=== PATIENT | female | born 1965 | race Caucasian/White ===

== ENCOUNTER → 2017-05-25 | Outpatient (CLI) | payer OTHER ==
[~2017-05-25] MED LIST: GADOBUTROL 10 ML VIAL IVP ONE
== END ==
LOC: FIMAGING 10:24
PROVIDERS: ATTEND Emergency Medicine
DX: Z15.01 Genetic susceptibility to malignant neoplasm of breast (principal)
CPT/HCPCS: 0159T; A9585; C8908

== ENCOUNTER 2018-01-26 02:50 | Emergency (ER) | payer OTHER ==
[2018-01-26 04:14] LABS: PLATELET COUNT 305 10^3/uL (150-400)
[2018-01-26] MEDS ORDERED: PHENAZOPYRIDINE HCL 200 MG TAB PO ONE (04:34)
--- NOTE | 2018-01-26 05:20 | EDPHY ---
H & P Stated Complaint: unable to urinate Source: Patient Exam Limitations: No limitations - Personal History LMP (Females 10-55): 8-14 Days Ago Current Tetanus Diphtheria and Acellular Pertussis (TDAP): No - Medical/Surgical History Hx Asthma: No Hx Chronic Respiratory Disease: No Hx Diabetes: No Hx Cardiac Disease: No Hx Renal Disease: No Hx Cirrhosis: No Hx Alcoholism: No Hx HIV/AIDS: No Hx Splenectomy or Spleen Trauma: No Other PMH: MS 2006. celiac. thyroiditis - Social History Smoking Status: Never smoked Time Seen by Provider: 01/26/18 03:22 HPI/ROS: HPI The patient presents with urinary retention which has been present since 8:00 p.m. Tonight. She has been unable to void at all since then. She has had a feeling of urinary frequency throughout the day yesterday and today. Since June of this year she has been diagnosed with frequent UTIs that have been resistant antibiotics, thus she has been treated with hyperbaric oxygen therapy with good result. She is being followed by the urologist Dr. Mann. She also reports constipation for the last 1-2 months. Lately she has been requiring an enema every other day for this. She last had an enema tonight with large volume stool output, however she was still unable to void after this. She complains of some paresthesias just below her diaphragm bilaterally as well in her buttocks bilaterally. The patient has a history of relapsing and remitting multiple sclerosis and has had lesions identified in her brain and spine. She has required IV steroids for a flare several years ago. REVIEW OF SYSTEMS 10 systems were reviewed and negative with the exception of the elements mentioned in the history of present illness. PMHx: Relapsing remitting MS currently on prednisone 10 mg, history of frequent UTI since June of this year treated with antibiotics and hyperbaric oxygen therapy. Followed by Dr. Kim for primary care, Dr. Anne for local Neurology, Dr. King is her urologist, and seeing Dr. Bhagat of Neurology at [facility] Hx: Housed PHYSICAL General Appearance: Alert, no distress Eyes: Pupils equal and round no pallor or injection ENT, Mouth: Mucous membranes moist Respiratory: There are no retractions, lungs are clear to auscultation Cardiovascular: Regular rate and rhythm Gastrointestinal: Abdomen is slightly distended in suprapubic region and non- tender, no masses, bowel sounds normal Neurological: Alert and oriented x3, cranial nerves 2-12 intact, strength is full in her upper and lower extremities, there is decreased sensation to light touch in of her upper abdomen and mid buttocks bilaterally Skin: Warm and dry, no rashes Musculoskeletal: Neck is supple non tender Extremities: symmetrical, full range of motion Psychiatric: Patient is oriented X 3, there is no agitation (Elissa Shankar) Constitutional: Initial Vital Signs Temperature (C) 36.3 C 01/26/18 02:56 Heart Rate 110 H 01/26/18 02:56 Respiratory Rate 14 01/26/18 02:56 Blood Pressure 160/136 H 01/26/18 02:56 O2 Sat (%) 96 01/26/18 02:56 O2 Delivery Mode Room Air Allergies/Adverse Reactions: gluten [Gluten] Allergy (Verified 01/26/18 02:55) Home Medications: Medication Instructions Recorded Cholecalciferol Vit D3 [Vitamin D3 1,000 units PO DAILY 06/13/14 (*)] Herbals/Supplements -Info Only 1 ea PO DAILY 06/13/14 Iodine Drops 15 drops PO DAILY 06/13/14 Naltrexone Low Dose 5 mg PO HS 06/13/14 PARoxetine HCL [Paxil 10mg (*)] 10 mg PO HS 06/13/14 Progesterone Cream 1 rosy TP DAILY 06/13/14 QUEtiapine FUMARATE [Seroquel 25 100 mg PO HS 06/13/14 mg (*)] T4 25 mcg SL QID 06/13/14 metFORMIN HCL [Glucophage 500 mg 500 mg PO HS 06/13/14 (*)] methylPREDNISolone SOD SUCC 500 mg IV DAILY #3 vial 06/15/14 [Solu-Medrol] Medical Decision Making - Diagnostics Imaging Results: Imaging Impressions Cervical Spine MRI 01/26/18 04:20 Impression: 1. Multiple cervical spinal cord and upper thoracic spinal cord demyelinating plaques without acute enhancing demyelinating plaques or definite new plaques since June 2014. 2. Mild to moderate degenerative disk disease with dorsal disk/osteophyte complexes and bilateral uncovertebral osteophytes, worst at C5-C6, resulting in C5-C6 mild central canal stenosis, moderate to severe left neural foraminal stenosis, and mild to moderate right neural foraminal stenosis. 3. No cord compression or craniocervical stenosis. Lumbar Spine MRI 01/26/18 04:20 Impression: Please see above findings at specific disk levels. Thoracic Spine MRI 01/26/18 04:20 Impression: 1. No evidence of active demyelinating plaque in the thoracic spinal cord. 2. Spinal cord atrophy and subtle white matter lesions in the spinal cord at T4 and T9 have not significantly changed since May 2014. 3. Small disk protrusions at T6-T7 and T7-T8 are unchanged and result in no significant central canal or neural foraminal stenosis. 4. No new disk herniation or significant central canal or neural foraminal stenosis at any level. Findings discussed with Emergency Department physician, Elissa Shankar MD on 01/26/2018 at 10:30 a.m. Brain MRI 01/26/18 04:34 Impression: 1. No active demyelinating lesion, acute ischemia, intracranial hemorrhage, or mass effect. 2. Small volume of subcortical and periventricular supratentorial and cerebellar white matter lesions has minimally decreased since 2014. Findings discussed with Emergency Department physician, Dr. Melvin Cardenas, on 01/26/2018 at 9:40 a.m. Differential Diagnosis: 52-year-old female with history of multiple sclerosis, relapsing and remitting, currently on prednisone 10 presents with urinary retention for the last several hours, subacute constipation requiring frequent enemas, paresthesias of her abdomen and buttocks with diminished sensation on exam. Postvoid residual here is 280 mL. Straight catheterization was performed with some improvement in her symptoms. Abdominal exam is now benign her abdomen is soft and nondistended making me believe that constipation is unlikely to be contributing to her urinary retention. UA does show evidence of urinary tract infection and culture has been sent. Patient has history of multidrug resistant urinary tract infections. I have given her a dose of peridium so far. I have consulted with the on-call neurologist from [place] Dr. Cesar who recommends MRI with and without contrast for further evaluation for acute multiple sclerosis flare. This is been ordered for the patient. The patient again felt urinary retention, bladder scan was performed which showed 400 mL of urine. Because of this and the fact the patient was going for MRI for several hours, Saldaña catheter was placed. She has received Ativan for anxiety likes this during her MRI. I have discussed the case with the hospitalist Dr. Ortiz who recommends be re-consult after patient's MRI is complete. I anticipate at 7:00 a.m. The case will be signed out to the oncoming provider Dr. Cardenas to follow up on the patient's MRI result. (Elissa Shankar) Other Provider: I assumed care of the patient at 7:00 a.m. in the morning. Update at 10:00 a.m.: I am informed that the patient's brain MRI demonstrates no evidence of active MS. 10:30 am: No active MS lesions are seen in the cervical, thoracic and lumbar spine MRIs. Re-evaluated the patient. Options were presented to the patient including discharging the patient home with a Saldaña catheter or attempting a voiding trial in the ED. A voiding trial was attempted in the patient is urinating without problem. The patient will be discharged home at this point time. There is no indication for high-dose IV antibiotic therapy. (Melvin Cardenas) - Data Points Laboratory Results: Laboratory Results 01/26/18 04:02 01/26/18 04:02 01/26/18 01/26/18 01/26/18 04:02 04:02 03:48 WBC 7.99 10^3/uL 10^3/uL (3.80-9.50) RBC 4.11 10^6/uL L 10^6/uL (4.18-5.33) Hgb 12.5 g/dL L g/dL (12.6-16.3) Hct 37.2 % L % (38.0-47.0) MCV 90.5 fL fL (81.5-99.8) MCH 30.4 pg pg (27.9-34.1) MCHC 33.6 g/dL g/dL (32.4-36.7) RDW 14.4 % % (11.5-15.2) Plt Count 305 10^3/uL 10^3/uL (150-400) MPV 9.1 fL fL (8.7-11.7) Neut % (Auto) 67.6 % % (39.3-74.2) Lymph % (Auto) 19.4 % % (15.0-45.0) [place] % (Auto) 10.0 % % (4.5-13.0) Eos % (Auto) 1.9 % % (0.6-7.6) Baso % (Auto) 0.6 % % (0.3-1.7) Nucleat RBC Rel Count 0.0 % % (0.0-0.2) Absolute Neuts (auto) 5.40 10^3/uL 10^3/uL (1.70-6.50) Absolute Lymphs (auto) 1.55 10^3/uL 10^3/uL (1.00-3.00) Absolute Monos (auto) 0.80 10^3/uL 10^3/uL (0.30-0.80) Absolute Eos (auto) 0.15 10^3/uL 10^3/uL (0.03-0.40) Absolute Basos (auto) 0.05 10^3/uL 10^3/uL (0.02-0.10) Absolute Nucleated RBC 0.00 10^3/uL 10^3/uL (0-0.01) Immature Gran % 0.5 % % (0.0-1.1) Immature Gran # 0.04 10^3/uL 10^3/uL (0.00-0.10) Sodium 141 mEq/L mEq/L (135-145) Potassium 3.6 mEq/L mEq/L (3.3-5.0) Chloride 110 mEq/L mEq/L (97-110) Carbon Dioxide 24 mEq/l mEq/l (22-31) Anion Gap 7 mEq/L mEq/L (6-14) BUN 14 mg/dL mg/dL (7-23) Creatinine 0.7 mg/dL mg/dL (0.6-1.0) Estimated GFR > 60 Glucose 110 mg/dL H mg/dL (70-100) Calcium 8.9 mg/dL mg/dL (8.5-10.4) Urine Color SO Urine Appearance CLEAR Urine pH 5.0 (5.0-7.5) Ur Specific [place] 1.014 (1.002-1.030) Urine Protein NEGATIVE (NEGATIVE) Urine Ketones NEGATIVE (NEGATIVE) Urine Blood NEGATIVE (NEGATIVE) Urine Nitrate POSITIVE H (NEGATIVE) Urine Bilirubin NEGATIVE (NEGATIVE) Urine Urobilinogen 4.0 EU H EU (0.2-1.0) Ur Leukocyte Esterase NEGATIVE (NEGATIVE) Urine RBC 1-3 /hpf /hpf (0-3) Urine WBC 1-3 /hpf /hpf (0-3) Ur Epithelial Cells TRACE /lpf /lpf (NONE-1+) Urine Bacteria TRACE /hpf H /hpf (NONE SEEN) Urine Mucus TRACE /lpf /lpf (NONE-1+) Urine Glucose NEGATIVE (NEGATIVE) Medications Given: Discontinued Medications Lorazepam (Ativan Injection) 1 mg IVP EDNOW ONE Stop: 01/26/18 05:53 Last Admin: 01/26/18 05:53 Dose: 1 mg Lorazepam (Ativan Injection) 1 mg IVP EDNOW ONE Stop: 01/26/18 06:16 Last Admin: 01/26/18 06:16 Dose: 1 mg Phenazopyridine HCl (Pyridium) 200 mg PO EDNOW ONE Stop: 01/26/18 04:35 Last Admin: 01/26/18 04:57 Dose: 200 mg Departure - Departure Disposition: Home, Routine, Self-Care Clinical Impression: Urinary retention Condition: Good Instructions: Acute Urinary Retention in Women (ED) Additional Instructions: 1. Please follow-up with your urologist as scheduled. 2. Return to the ED for any recurrent retention, severe pain or other concerns. Referrals: Delon Kim MD [Primary Care Provider] - As per Instructions
[2018-01-26] MEDS ORDERED: LORazepam 2 MG/ML INJ ONE (05:39)
[2018-01-26] MEDS ORDERED: LORazepam 2 MG/ML INJ IVP ONE ×2 (05:52→06:15)
[2018-01-26] MEDS ORDERED: GADOBUTROL 10 ML VIAL IVP ONE (06:10)
[2018-01-26 12:03] VITALS: BP 123/67
== END 2018-01-26 12:03 | disposition home or self-care (01) ==
PROC: 0T9B70Z Drainage of Bladder with Drainage Device, Via Natural or Artificial Opening (ICD-10-PCS; principal; 2018-01-26)
DX: R33.9 Retention of urine, unspecified (principal); G35 Multiple sclerosis; Z87.440 Personal history of urinary (tract) infections
CPT/HCPCS: 96374; A9585; J2060